=== PATIENT | female | born 1975 | race Caucasian/White ===

== ENCOUNTER 2020-12-23 08:25 | Outpatient (CLI) | payer OTHER, SELFPAY ==
--- NOTE | ~2020-12-23 | CT_ITS ---
EXAMINATION: CT LE RT wo con DATE: 12/23/2020 09:02 INDICATION: Unilateral primary osteoarthritis of the right knee TECHNIQUE: High resolution computed tomography (CT) of the right lower limb from above the hip throug h the foot was performed without intravenous contrast. Additional sagittal and coronal reconstruction s were performed. Automated exposure control and iterative reconstruction technique were employed. Th e dose-length product was 1728.56 mGy-cm. COMPARISON: None FINDINGS: Varus angulation at the right knee with resulting from severe medial compartment predominant osteoart hritis with remodeling of the medial tibial plateau where there is subarticular cystic change. No rig ht knee joint effusion. No fracture. There is additional mild osteoarthritis at the right hip and sac roiliac joints. Small elongated sclerotic likely bone island in the right innominate bone near the sa croiliac joint which aligns along the trabecular axis. Small fat-containing right inguinal hernia. Vi sualized portions of the bladder, uterus and bowels are unremarkable. No pathologically enlarged righ t pelvic or inguinal lymphadenopathy. Musculature at the right hemipelvis and right leg appear unrema rkable. Mild osteoarthritis at the right ankle, subtalar and several tarsal metatarsal joints. Small Achilles and plantar calcaneal enthesophytes. Small amount of heterotopic ossicles along the fibular side of the anterior distal tibiofibular ligament as well as at the cervical ligament at the medial a spect of the sinus Tarsi both of which could represent sequela of old trauma. IMPRESSION: 1. Varus angulation and severe medial compartment predominant tricompartmental osteoarthritis at the right knee. Reviewed, dictated and finalized at location A.
== END 2020-12-23 08:26 | disposition home or self-care (01) ==
PROVIDERS: PCP Nurse Practitioner Family; Visit Provider Orthopaedic Surgery
DX: M17.11 Unilateral primary osteoarthritis, right knee (principal)
CPT/HCPCS: 73700

== ENCOUNTER 2021-01-15 07:36 | Outpatient (CLI) | payer OTHER, SELFPAY ==
--- NOTE | 2021-01-15 | ECG_ITS ---
Measurements Intervals [place] Rate: 81 P: 59 MD: 138 QRS: 12 QRSD: 89 T: 17 QT: 374 QTc: 437 Interpretive Statements SINUS RHYTHM POSSIBLE LEFT ATRIAL ENLARGEMENT DELAYED PRECORDIAL R/S TRANSITION MINIMAL Q WAVES- INFERIOR LEADS BASELINE ARTIFACT- I, II, AVR BORDERLINE ECG Electronically Signed On 01-15-2021 11:59:12 PERFORMANCE SPECIALIST by Terrence Meyer D.O.
[2021-01-15 08:06] LABS: Hematocrit 44.2 % (37.0-47.0); Hemoglobin 15.3 g/dL (12.0-15.0)
[2021-01-15 08:23] LABS: Albumin Level 4.7 g/dL (3.5-5.1); Estimated Glomerular Filt Rate > 60; Glucose 132 mg/dL (65-110)
[2021-01-15 08:37] LABS: Hemoglobin A1C 5.9 % (<5.7)
[2021-01-15 08:57] LABS: Urine Cotinine NEGATIVE
== END 2021-01-15 07:37 | disposition home or self-care (01) ==
PROVIDERS: Visit Provider Orthopaedic Surgery
DX: M17.12 Unilateral primary osteoarthritis, left knee (principal); E66.9 Obesity, unspecified; I10 Essential (primary) hypertension; Z01.818 Encounter for other preprocedural examination; R94.31 Abnormal electrocardiogram [ECG] [EKG]
CPT/HCPCS: 80307; 82040; 82565; 82947; 83036; 85014; 85018; 93005

== ENCOUNTER 2021-01-24 13:21 | Outpatient (CLI) | payer OTHER, SELFPAY ==
--- NOTE | ~2021-01-24 | CT_ITS ---
EXAMINATION: CT LE LT wo con DATE: 01/24/2021 13:54 INDICATION: Primary osteoarthritis of the left knee. TECHNIQUE: High resolution computed tomography (CT) of the left knee was performed without intravenou s contrast. Additional sagittal and coronal reconstructions were performed. Automated exposure contro l and iterative reconstruction technique were employed. The dose-length product was 582.05 mGy-cm. COMPARISON: None FINDINGS: Varus angulation at the left knee which results from severe medial compartment predominant osteoarthr itis with small amount of vacuum phenomena demonstrating cartilage is denuded articular surfaces with subarticular sclerosis and mild cystic changes at the medial tibial plateau and juxtaposed anterior weightbearing medial femoral condyle. There is also some remodeling of the medial side of the medial tibial plateau with moderate to large marginal osteophytes of the medial compartment. Moderate sized marginal osteophytes at the lateral and patellofemoral compartments. There is mild nonuniform joint s pace narrowing in the patellofemoral compartment. There is small region of mild subarticular cystic c hange along the medial margin of the anterior weightbearing lateral femoral condyle where it articula yadira with the lateral intercondylar spine with its also mild cystic change. No right knee joint effusi on. No fracture. Soft tissues including the musculature in the distal thigh and proximal calf are nor mal. IMPRESSION: 1. Varus angulation and severe medial compartment predominant tricompartmental osteoarthritis at left knee. Reviewed, dictated and finalized at location A. ALS INTELLIGENCE ANALYSIS MANAGER
== END 2021-01-24 13:22 | disposition home or self-care (01) ==
LOC: ANHIMG 13:32
PROVIDERS: Visit Provider Orthopaedic Surgery
DX: M17.0 Bilateral primary osteoarthritis of knee (principal)
CPT/HCPCS: 99199; 73700

== ENCOUNTER 2021-01-28 16:39 | Outpatient (CLI) | payer OTHER, SELFPAY ==
--- NOTE | ~2021-01-28 | CT_ITS ---
EXAMINATION: CT LE LT wo con DATE: 01/28/2021 17:56 INDICATION: Bilateral primary osteoarthritis of the left knee. TECHNIQUE: High resolution computed tomography (CT) of the left lower limb from the hip through the l eft midfoot was performed without intravenous contrast. Additional sagittal and coronal reconstructio ns were performed. Automated exposure control and iterative reconstruction technique were employed. T he dose-length product was 1735.04 mGy-cm. COMPARISON: 01/24/2021 FINDINGS: No fractures. Varus angulation at the left knee which results from severe medial compartment predomin ant osteoarthritis with small amount of vacuum phenomena demonstrating cartilage is denuded along the articular surfaces with subarticular sclerosis and mild cystic changes at the medial tibial plateau and juxtaposed anterior weightbearing medial femoral condyle. There is also some remodeling of the me dial side of the medial tibial plateau with moderate to large marginal osteophytes of the medial comp artment. Moderate sized marginal osteophytes at the lateral and patellofemoral compartments. Several central subchondral osteophytes along both the medial and lateral trochlea. There is mild nonuniform joint space narrowing in the patellofemoral compartment. There is small region of mild subarticular c ystic change along the medial margin of the anterior weightbearing lateral femoral condyle where it a rticulates with the lateral intercondylar spine were there is also mild cystic change. No right knee joint effusion. Additional mild polyarticular osteoarthritis at the left hip, ankle and subtalar join ts. Small Achilles calcaneal spur. Visualized soft tissues are unremarkable. No pathologically enlarg ed left hip or inguinal lymphadenopathy. IMPRESSION: 1. Varus angulation and severe medial compartment predominant tricompartmental osteoarthritis at left knee. Reviewed, dictated and finalized at location B. MBLY LINE ROBOT OPERATOR
== END 2021-01-28 16:40 | disposition home or self-care (01) ==
LOC: ANHIMG 16:42
PROVIDERS: Visit Provider Orthopaedic Surgery
DX: M17.0 Bilateral primary osteoarthritis of knee (principal)
CPT/HCPCS: 73700

== ENCOUNTER 2021-02-26 09:17 | Outpatient (CLI) | payer OTHER, SELFPAY ==
[2021-02-26 11:05] LABS: Basophils Absolute Auto 0.1 K/mm3 (0.0-0.1); Basophils Percent Auto 0.8 % (0.2-1.2); Eosinophils Absolute Auto 0.3 K/mm3 (0-0.3); Hematocrit 42.2 % (37.0-47.0); Hemoglobin 14.3 g/dL (12.0-15.0); Immature Granulocyte Absolute 0.03 K/mm3 (0.00-0.031); Immature Granulocyte Percent A 0.3 % (0-0.5); Lymphocytes Absolute Auto 2.26 K/mm3 (0.9-3.2); Lymphocytes Percent Auto 24.9 % (18.3-44.2); Mean Corpuscular HGB Conc 33.9 g/dl (32-36); Mean Corpuscular Hemoglobin 30.6 pg (26-34); Mean Corpuscular Volume 90.2 fl (80-100); Mean Platelet Volume 9.5 fl (7.4-10.4); Monocytes Absolute Auto 0.5 K/mm3 (0.1-0.6); Monocytes Percent Auto 5.1 % (2.6-8.5); Neutrophils Percent Auto 65.9 % (45.5-73.1); Platelet Count Result 378 k/mm3 (150-375); Red Blood Count 4.68 M/mm3 (4.2-5.4); White Blood Count 9.1 K/mm3 (4.5-10.0)
[2021-02-26 11:17] LABS: Urine Cotinine NEGATIVE
[2021-02-26 11:26] LABS: Anion Gap 10 mmol/L (8-16); Blood Urea Nitrogen 8 mg/dL (7-17); Calcium 9.6 mg/dL (8.4-10.2); Carbon Dioxide 28 mmol/L (22-30); Chloride 98 mmol/L (98-107); Estimated Glomerular Filt Rate > 60; Glucose 110 mg/dL (65-110); Potassium 4.2 mmol/L (3.4-5.0); Sodium 136 mmol/L (137-145)
[2021-02-26 12:12] LABS: Albumin Level 4.6 g/dL (3.5-5.1)
== END 2021-02-26 09:18 | disposition home or self-care (01) ==
LOC: ANHSURGERY 09:20
PROVIDERS: Anesthesiology; Visit Provider Orthopaedic Surgery
DX: M17.12 Unilateral primary osteoarthritis, left knee (principal); Z51.81 Encounter for therapeutic drug level monitoring; Z01.818 Encounter for other preprocedural examination
CPT/HCPCS: 36415; 80048; 80307; 82040; 85025; 87081

== ENCOUNTER 2021-04-21 00:03 | Day surgery (SDC) | payer OTHER, SELFPAY ==
[2021-02-26 09:42] VITALS: BP 141/78; PULSE 79; RESP 16; TEMP 36.9; O2SAT 98; BMI 38.5
--- NOTE | 2021-02-26 09:59 | PC.NURSE ---
Addendum entered by Alma Merchant RN 04/14/21 13:44: PT TO ARRIVE AT 1000 ON 04/21/21 FOR SURGERY AT 1200. Original Note: Report to the Outpatient Waiting Room, entrance under the green pavilion located off [facility], at time ___6:00AM____ on date _03/20/21 . OR Time: __7:30AM or will be asked a series of questions to screen for COVID 19 for your protection. - A mask is required within the hospital. - Only one visitor is allowed at this time. Patient visitors will be guided where to wait when not with patient. Preoperative COVID Testing Requirements: No COVID Test needed if: (proof is required; if not received patient will have Rapid Test prior to entry) - Patient has received COVID Vaccine at least 14 days prior to procedure date or - Patient has positive COVID test result within last 90 days of surgery date. COVID Test needed if above criteria is not met If not COVID vaccinated a COVID test must be conducted within 72 hours of surgery and patient is asked to isolate self from time of testing until procedure. You will go to the [facility] for your COVID testing. The [facility] site is located at the corner of [address] [facility]. You will only be called if COVID results are positive and your surgeon may reschedule your elective surgery date. Patients may have clear liquids (water, carbonated beverages, clear teas, apple juice) until 3 hours prior to surgery with a maximum of 20 ounces. - No food from midnight until time of surgery - Infants may have breast milk until 4 hours before surgery, infant formula 6 hours prior to surgery. - Children will be allowed to drink immediately following surgery. If applicable, please bring a bottle or sippy cup to assist with drinking. Juice, water, soda, and popsicles are readily available. For infants on formula, please bring formula the day of surgery. Pacifiers are allowed. Take the following medications with a SIP of water the morning of surgery: ____NONE Medications to discontinue per physician ALL VITAMINS/SUPPLEMENTS 3 DAYS PRE-OP Date to take last dose 03/16/21 Please no make-up, nail serbian, hairspray, perfume, deodorant, or body powder the day of surgery. No jewelry (including any body piercings) or valuables the day of surgery, leave them at home. Please take a shower or bath the night before, or the morning of, surgery with an antibacterial soap. Wear comfortable, loose fitting clothing. Children are encouraged to wear pajamas. - Jewelry must be removed prior to entering the operating room. Rings and piercings that are not removed may be cut off. - The hospital will not accept responsibility for valuables. - Please leave all valuables, including medications, at home the day of surgery. If you are going home after surgery, a licensed courier delivery driver must drive you home. - NO public transportation without another adult. - We recommend that an adult stay with you for 24 hours following discharge. - We also recommend that you do not drive, make important decision, drink alcoholic beverages, or take any drugs that were not prescribed by your health care provider for at least 24 hours after your discharge time. For Pediatric surgeries, we recommend two adults accompany the child home (only one inside the building at this time). Follow any additional instructions given to you from your surgeon. Telephone instructions given to ___PATIENT and asked if any additional questions and then verbalized understanding. Patient advised to call surgeon office or pre surgery nurse liaison [phone] if any additional questions.
[2021-04-14 13:37] VITALS: BMI 38.5
[2021-04-21] VITALS (14 sets, daily range): BP systolic 119–144; BP diastolic 65–88; PULSE 72–95; RESP 14–18; TEMP 36.1–36.7; O2SAT 88–100
--- NOTE | ~2021-04-21 | XR_ITS ---
EXAMINATION: XR knee LT 2V DATE: 04/21/2021 16:42 INDICATION: Total left knee arthroplasty. Postop. TECHNIQUE: 2 views of left knee were obtained. COMPARISON: Left knee radiographs 06/28/2017 FINDINGS: There is a total left knee arthroplasty with patellar resurfacing in near-anatomic alignmen t. No fracture. There is gas in the knee joint and soft tissues, consistent with recent surgery. IMPRESSION: 1. Total left knee arthroplasty in near-anatomic alignment. Reviewed, dictated and finalized at location A. SUBMERGENCE VEHICLE CREWMEMBER
[2021-04-21] MEDS: ACETAMINOPHEN 500 MG TABLET 1000 MG PO (10:32)
[2021-04-21] MEDS: LACTATED RINGERS 1,000 ML 30 ML IV CONT ×2 (11:00→16:25)
[2021-04-21] MEDS: TRANEXAMIC ACID 1,000MG/ISO100 1,000 MG/100 ML BAG 200 MG IVPB (11:00)
--- NOTE | 2021-04-21 11:49 | WPDANESEPPF ---
Anes - Initial Pre Proc Eval Procedure: Operation Date: 04/21/21 12:00 Proposed Procedures p Left Custom Total Knee Arthroplasty - Kevin Galloway MD Date/Time: 04/21/21 11:49 Surgeon: Kevin Galloway MD Pre Op Diagnosis: primary OA left knee Patient Data Age: 45 Gender: F Height: 1.65 m Weight: 104 kg Last Vital Signs Temp 36.2 C L 04/21/21 11:34 Pulse 85 04/21/21 11:34 Resp 16 04/21/21 11:34 BP 144/84 H 04/21/21 11:34 Pulse Ox 99 04/21/21 11:34 Allergies Allergy/AdvReac Type Severity Reaction Status Date / Time adhesive Allergy Unknown Blister Verified 04/21/21 11:27 Home Medications Medication Instructions Recorded Confirmed Type multivitamin 1 tablet PO DAILY 01/10/21 04/21/21 History mv,iron,mnv-AR-ltzibrb supplement 1 tablet PO DAILY 01/10/21 04/21/21 History comb. no.24 400 mcg tablet progesterone micronized 100 mg 100 mg PO HS 01/10/21 04/21/21 History capsule semaglutide (weight loss) 2.4 2.4 mg SUBCUT WEEKLY 01/10/21 04/21/21 History mg/0.75 mL subcutaneous pen injector phentermine 18.75 mg PO QAM 02/26/21 04/21/21 History sertraline 100 mg PO HS 02/26/21 04/21/21 History spironolactone 100 mg PO BID 02/26/21 04/21/21 History Patient hx anesthesia problems: post op nausea/vomiting Family hx anesthesia problems: none Results Review: All pre-operative results and documents have been reviewed as part of the pre-operative evaluation. COUNTS INCLUDE 234 BEDS AT THE [facility] Past Medical History Medical History Anxiety Arthritis Hypertension PAOLO (obstructive sleep apnea) Surgical History Surgical History History of section Family History Family History Father Family history of malignant melanoma, Onset Age: 53 Other Diabetes mellitus Family history of dementia Family history of lung cancer Social History Social History Smoking status: Never smoker Alcohol intake: current Drinks per week: 2 Substance use: never Substance use type: does not use Living arrangements: with family Additional living arrangements comments: [facility] Spiritual care concerns: No Anes - Eval Final PreProcedure Day of Procedure 04/21/21 11:49 Patient weight: obese Heart: regular rate and rhythm Lungs: clear to auscultation Airway: Mallampati scale class 1 Neurological: alert and oriented Last oral intake: >/= 8 hours ASA classification: III Emergent: no Anesthetic plan: proceed Anesthesia type and monitoring: general LMA and standard monitoring Results Review: All pre-operative results and documents have been reviewed as part of the pre-operative evaluation. Informed Consent: The patient's anesthetic plan and its attendant risks and benefits were discussed with the patient/family/POA. Questions were solicited and answers provided to the satisfaction of the patient/family/POA.
--- NOTE | 2021-04-21 12:19 | PM.IMHP ---
H&P: HPI History of Present Illness Date/Time: 04/21/21 12:19 Chief Complaint: Patient complains of chronic and severe diffuse knee pain. Left worse than right. Worse with prolonged standing and walking. Complains also of pain in the ankle with notable deformity. Injection: yes with diminishing benefit Physical therapy: Yes with little benefit. Reviewed notes from 06/27/20 and 08/09/20. Slight improvement in ROM. Still has significant contracture. NSAIDs: yes Review of Systems: Joint pain Examination No changes. Appears healthy. No distress, morbidly obese. The knee shows Severe varus deformity. Diffuse tenderness. Painful limited active range of motion. No instability. Good strength. Yes crepitus, No erythema or warmth, Mild synovitis Gait Antalgic. Range of motion: left Extension 0, Flexion 90, and 3- 95 on the right Effusion mild bilateral. Neurovascular status intact, radial pulse palpable and symmetric, light touch sensation intact. No edema, no skin rash or lesions Diagnostics Previous bilateral knee films show severe tricompartmental arthritis with significant varus deformity and medial tibial erosion. FOR[facility]LY [facility] Past Medical History Medical History Anxiety Arthritis Hypertension PAOLO (obstructive sleep apnea) Surgical History Surgical History History of section Family History Family History Father Family history of malignant melanoma, Onset Age: 53 Other Diabetes mellitus Family history of dementia Family history of lung cancer Social History Social History Smoking status: Never smoker Alcohol intake: current Drinks per week: 2 Substance use: never Substance use type: does not use Living arrangements: with family Additional living arrangements comments: [facility] Spiritual care concerns: No Meds Home Medications and Allergies Home Medications Medication Instructions Recorded Confirmed Type multivitamin 1 tablet PO DAILY 01/10/21 04/21/21 History mv,iron,qzw-HW-tlbbbar supplement 1 tablet PO DAILY 01/10/21 04/21/21 History comb. no.24 400 mcg tablet progesterone micronized 100 mg 100 mg PO HS 01/10/21 04/21/21 History capsule semaglutide (weight loss) 2.4 2.4 mg SUBCUT WEEKLY 01/10/21 04/21/21 History mg/0.75 mL subcutaneous pen injector phentermine 18.75 mg PO QAM 02/26/21 04/21/21 History sertraline 100 mg PO HS 02/26/21 04/21/21 History spironolactone 100 mg PO BID 02/26/21 04/21/21 History Allergies Allergy/AdvReac Type Severity Reaction Status Date / Time adhesive Allergy Unknown Blister Verified 04/21/21 11:27 Vital Signs Vital Signs - 24 hr 04/21/21 11:34 Temperature 36.2 C L Pulse Rate 85 Respiratory Rate 16 Blood Pressure 144/84 H Pulse Oximetry 99 Assessment and Plan Assessment and plan (1) Primary localized osteoarthritis of knees, bilateral: Code(s): M17.0 - Bilateral primary osteoarthritis of knee Status: Acute Assessment and Plan: Severe advanced bilateral knee arthritis. Left worse than right. She is having difficulty with daily activities and walking. Also ankle pain due to the varus deformity. Her contracture has improved with therapy but remains quite significant particularly on the left. We discussed the risks, benefits, and alternatives to surgery. Proceed with total knee arthroplasty, left knee. Philipp. PS. Pain medication: Percocet, Meloxicam, Prednisone DVT Prophylaxis: ASA 81 mg BID, short frequent walks, compression socks. History of N/V after anesthesia.
--- NOTE | 2021-04-21 12:22 | WPDHPUPDATE1 ---
History and Physical Update Update Date/Time: 04/21/21 12:22 History and Physical has been reviewed, including an updated exam of the patient. There are NO changes in the patient's condition. Risks, benefits, and alternatives have been discussed and questions answered. Patient agrees to proceed with procedure.
--- NOTE | 2021-04-21 12:26 | WPDANESPNB ---
Anes - Peripheral Nerve Block Date/Time: 04/21/21 12:26 I have discussed with the patient/family/POA the placement of a peripheral nerve block for post-operative pain management, including associated risks, benefits, complications, and side effects. Alternative methods of post-operative analgesia were detailed. Questions were solicited and answers provided to the satisfaction of the patient/family/POA. Time-Out: A pre-procedural Time-Out was completed immediately before starting the procedure and confirmed: Patient Identification, Site, Procedure, Patient Position and the Availability of Requisite Equipment. Clinical Indications: Acute post-operative pain management requested by the operative surgeon. Nerve Block Insertion Note Anes-nerve block: adductor canal left Patient position: supine Skin prep: chlorhexidine Needle: 22 gauge, stimulating, insulated echogenic needle. Needle length: 80 mm Technique: ultrasound Technique comment: mid2mg [id number] Injectate: bupivacaine 0.5% with epi 5 mcg/ml (30ml) and dexamethasone (mg) (4) Observations: tolerated well Complications: none Procedure start time:: 1213 Procedure end time:: 1220
[2021-04-21] MEDS: ceFAZolin 2 GM/D5W 50 ML 2 GM/50 ML BAG IVPB (12:49)
[2021-04-21] MEDS: GENTAMICIN BONE CEMENT REFOBACIN 1 EACH TOPICAL (13:43)
[2021-04-21] MEDS: ceFAZolin SODIUM 1 GM VIAL IV PUSH (16:18)
[2021-04-21] MEDS: SCOPOLAMINE 1.5 MG PATCH TRANSDERM (16:25)
--- NOTE | 2021-04-21 16:52 | SUR.PHASEI ---
1635 2 VIEWS OF XRAY TAKEN OF LT KNEE IN PACU
--- NOTE | 2021-04-21 17:06 | W.PM.PROC2 ---
Procedure Note - Detailed Date of Procedure 04/21/21 Pre-op Diagnosis primary OA left knee Post-op Diagnosis same Procedure Performed Total knee arthroplasty, left. Surgeon Kevin Galloway MD Road Design Engineer Abigail Sorenson PA-C Anesthesia general and regional (Subsartorial block.) Indications Advanced degenerative changes with severe stiffness due to osteophytes with constitutional varus and progressive varus deformity due to tibial erosion. Findings Marked stiffness from 10? to 60?. Femoral 4 in 1 cut guide not be placed without cutting the tibia after the distal femoral resection. The custom implants fit very well. Meticulous osteophyte removal was required. Due to posterior medial tibial erosion, minimal tibial resection was performed particularly on the posteromedial aspect. A large medial release was required. Bone quality was excellent. Description of Procedure Physician material assistant, Abigail Ortega PA-C, required for surgery; including patient positioning, draping, tissue retraction, maintaining instrument position, cement removal, wound closure, and dressing placement. Preoperative antibiotics were given. The limb was prepped and draped in the usual sterile fashion with a well-padded tourniquet high on the thigh. The limb was exsanguinated and the tourniquet inflated to 300 mmHg for 60 minutes, then released until cementation. A longitudinal incision was created just medial to the patella. A trivector approach to the knee was performed. Arthrotomy was taken down through the joint capsule. No significant releases were initially taken. The femur was exposed and the F1 jig was applied. The coring tool was used to remove the cartilage for the F2 jig to sit flush with the bone. The jig was pinned and the distal cut carefully taken. Caliper measurements confirmed appropriate bony resections according to the preoperative templated plan. The tibia was prepared using the T1 jig, after removing cartilage for the jig contact points. Proper alignment was checked with the alignment ligia. The tibia was cut using the T1u guide. The F4 cutting jig for the femur was applied, at the standard rotation. The AP and anterior chamfer cuts were taken. The F5 jig was applied and the posterior chamfer cuts were taken. Gap balancing was performed. Gap measurements were taken and the knee was trialed. Excellent alignment and soft tissue balancing was confirmed. The patella was cut for resurfacing. Three lug holes were drilled. Meniscal remnants were removed. The trial components were assembled. Excellent range of motion and proper soft tissue balancing were confirmed throughout the full range of motion. Patellar tracking was excellent. The knee was copiously irrigated periodically throughout the procedure. The real implants were cemented into position. Excess cement was carefully removed. The wound was closed in layers with interrupted #1 Vicryl suture, 2-0 strata fix suture, 0 strata fix suture, 2-0 strata fix suture. Steri-Strips placed on the skin with the knee flexed. Sterile bulky dressing applied. The patient was brought to the recovery room in stable condition. There were no complications. Implants Conformis Custom total knee arthroplasty. Cemented. Posterior stabilized 8mm insert. 32 mm round patella. Estimated Blood Loss 150 Drains No Complications No immediate complications Condition stable Disposition PACU
[2021-04-21] MEDS: fentaNYL CITRATE INJ (*CRX) 100 MCG/2 ML VIAL 25 MCG IV PUSH (17:09)
[2021-04-21] MEDS: ONDANSETRON INJ 4 MG/2 ML VIAL IV PUSH (17:17)
--- NOTE | 2021-04-21 17:44 | ADMGEN ---
This patient, Caitlyn Rico, was admitted to 2 Medical Room 260-. Patient/family oriented to hospital policies and general routines including ID bracelet, bed and alarms, visiting hours, pain management, procedures, bathroom and other care routines, personal items, smoking policy, room service/diet, and visiting hours. Information on how to activate the Rapid Response Team has been discussed. Patient/Family are encouraged to report perceived risks to care and to ask questions if they do not understand what they are told or what they should do.
[2021-04-21] MEDS: SODIUM CHLORIDE 0.9% IV 1,000 ML 125 ML IV CONT (18:34)
[2021-04-21] MEDS: oxyCODONE HCL (*CRX) 5 MG TAB IR PO (20:08)
[2021-04-21] MEDS: SENNA/DOCUSATE SODIUM TABLET 2 TAB PO (22:00)
[2021-04-21] MEDS: SPIRONOLACTONE 50 MG TABLET 100 MG PO (22:00)
[2021-04-21] MEDS: SERTRALINE HCL 50 MG TABLET 100 MG PO (22:00)
[2021-04-22 01:50] VITALS: PULSE 78; RESP 16; O2SAT 96
[2021-04-22] MEDS: ONDANSETRON INJ 4 MG/2 ML VIAL IV PUSH (02:10)
[2021-04-22] MEDS: ceFAZolin 2 GM/D5W 50 ML 2 GM/50 ML BAG IVPB ×3 (02:24→13:12)
[2021-04-22 03:12] VITALS: BP 125/68; PULSE 71; RESP 17; TEMP 36.2; O2SAT 98
[2021-04-22 06:00] VITALS: PULSE 71; RESP 17; O2SAT 98
[2021-04-22] MEDS: THERAPEUTIC MULTIVITAMINS/MINERALS TAB (*BKC) 1 TABLET PO (08:27)
[2021-04-22] MEDS: oxyCODONE HCL (*CRX) 5 MG TAB IR PO (08:29)
--- NOTE | 2021-04-22 09:23 | WPDANESPN ---
Anes - Prog Note Post-Op Date/Time: 04/22/21 09:23 Cardiovascular status: normal Respiratory status: normal Airway patency: baseline Mental status: baseline Post-Op hydration status: normal Vital Signs: Last Vital Signs Temp 97.2 F L 04/22/21 03:12 Pulse 71 04/22/21 06:00 Resp 17 04/22/21 06:00 BP 125/68 04/22/21 03:12 Pulse Ox 98 04/22/21 06:00 Pain Score (VAS): 03/03 I/O: Intake & Output 04/21/21 04/22/21 04/22/21 23:59 07:59 15:59 Intake Total 300 1300 360 Balance 300 1300 360 04/21/21 10:42 Blood Type A Positive Antibody Screen Negative Post-procedural complaints: none Patient Feedback: Patient satisfied with anesthetic care.
[2021-04-22] MEDS: oxyCODONE HCL (*CRX) 5 MG TAB IR 10 MG PO ×2 (09:58→14:14)
[2021-04-22 10:05] VITALS: BP 134/75; PULSE 70; RESP 16; TEMP 36.6; O2SAT 99
--- NOTE | 2021-04-22 10:55 | P.DS_ITS ---
DS: Admitting Diagnosis Discharge Date 04/22/21 Admitting Diagnosis OA knee Left DS: Discharge Diagnosis Discharge Diagnosis (1) Orthopedic aftercare for joint replacement: Code(s): Z47.1 - Aftercare following joint replacement surgery Status: Acute (2) Status post total left knee replacement: Code(s): Z96.652 - Presence of left artificial knee joint Status: Acute Assessment and Plan: Postop day 1: Left total knee arthroplasty. Patient tolerated procedure well. No complications. Pain manageable with pain medication. No numbness or tingling. We had a lengthy discussion regarding postoperative wound care, limitations, expectations, and exercises. Patient shows good understanding. He has had initial physical therapy and is tolerating it well. DVT prophylaxis: 81 mg baby aspirin b.i.d. for 14 days. Short frequent walks. Compression socks. Pain medication: Percocet. Prednisone. Meloxicam. Patient has followup appointment with Dr. Galloway in 3 weeks. DS: Summary Hospital Course Reason for hospitalization: Total knee arthroplasty Hospital Course: Patient tolerated procedure well. Has had initial PT/OT. Status at Discharge Functional status at discharge: uses cane/walker Overall status at discharge: patient is progressing back to baseline Time Spent with Patient Time attestation: Total time spent providing and/or coordinating discharge services: Exam Narrative: Overweight 45-year-old female. Resting comfortably in bed. Alert and oriented x3. No acute distress. Wearing compression socks bilaterally. Dressing intact without drainage. Moderate swelling. No ecchymosis. No erythema. No hematoma. Range of motion limited due to pain. Calf nontender. Neurologic status intact. No varicosities. Distal pulses palpable. DS: Data Data Completed and Pending Labs on day of discharge: Labs from last 24 hours 04/21/21 10:42 Blood Type A Positive Antibody Screen Negative Discharge Plan Discharge Patient Disposition: Home, Self-Care Discharge Instructions: Remove the Scopolamine patch that was placed behind your ear in 72 hours or less. Wash your hands after touching. See green discharge instruction sheet. Patient Instructions: Pain Management (DC), Joint Replacement Surgery (DC), Knee Replacement (DC) Stand Alone Forms: General Discharge Instructions Follow-up/Referrals: Abigail Sorenson PA [Physician Poultry Husbandry Worker] - Discharge Medications: New meloxicam 15 mg tablet 15 mg PO DAILY Qty: 30 RF: 0 prednisone 5 mg tablet 5 mg PO DAILY 21 Days Qty: 21 RF: 0 aspirin 81 mg tablet,delayed release (DR/EC) 81 mg PO BID 14 Days Qty: 28 RF: 0 oxycodone-acetaminophen 5-325 mg tablet 1 - 2 tablet PO Q4-6H MDD 6 PRN (Reason: pain) Qty: 30 RF: 0 Continued Wegovy 2.4 mg/0.75 mL pen injector 2.4 mg subcut WEEKLY RF: 0 progesterone micronized 100 mg capsule 100 mg PO HS RF: 0 multivitamin Tablet 1 tablet PO DAILY RF: 0 mv,iron,ysb-AL-urhmpvj cmb.24 400 mcg tablet 1 tablet PO DAILY RF: 0 spironolactone 100 mg tablet 100 mg PO BID RF: 0 phentermine 37.5 mg Capsule 18.75 mg PO QAM RF: 0 sertraline 100 mg tablet 100 mg PO HS RF: 0
[2021-04-22] MEDS: ASPIRIN 81 MG ENTERIC TABLET PO (12:04)
[2021-04-22] MEDS: polyethylene glycoL 3350 17 GM POWD.PACK PO (12:04)
[2021-04-22] MEDS: MELOXICAM 7.5 MG TABLET PO (12:04)
[2021-04-22] MEDS: FAMOTIDINE 20 MG TABLET PO (12:04)
[2021-04-22] MEDS: SENNA/DOCUSATE SODIUM TABLET 2 TAB PO (12:04)
[2021-04-22 14:22] VITALS: BP 122/66; PULSE 79; RESP 16; TEMP 36.4; O2SAT 96
== END 2021-04-22 14:40 | disposition home or self-care (01) ==
LOC: ANHSURGERY 17:20 → ANH2MED 17:40
PROVIDERS: Visit Provider Orthopaedic Surgery
PROC: (CPT 27447; principal; 2021-04-21 12:00)
DX: M17.2 Bilateral post-traumatic osteoarthritis of knee (principal); M25.762 Osteophyte, left knee; G89.18 Other acute postprocedural pain; M25.562 Pain in left knee; F41.9 Anxiety disorder, unspecified; M19.90 Unspecified osteoarthritis, unspecified site; I10 Essential (primary) hypertension; G47.33 Obstructive sleep apnea (adult) (pediatric); E66.9 Obesity, unspecified; Z68.38 Body mass index [BMI] 38.0-38.9, adult
CPT/HCPCS: 27447; 64447; 36415; 73560; 86850; 86900; 86901; 97110; 97161; 97165; 97530; 97535; A9270; C1713; C1776; J0131; J0171; J0690; J1100; J1170; J1885; J2250; J2270; J2405; J2704; J2795; J3010; J7030; J7120

== ENCOUNTER 2021-07-28 14:52 | Outpatient (CLI) | payer OTHER, SELFPAY ==
[2021-07-28 15:36] LABS: Hematocrit 40.9 % (37.0-47.0); Hemoglobin 13.4 g/dL (12.0-15.0)
[2021-07-28 16:11] LABS: Hemoglobin A1C 5.7 % (<5.7)
[2021-07-28 17:29] LABS: Albumin Level 4.9 g/dL (3.5-5.1); Glucose 85 mg/dL (65-110)
[2021-07-29 10:48] LABS: Estimated Glomerular Filt Rate > 60
== END 2021-07-28 14:53 | disposition home or self-care (01) ==
LOC: ANHLAB 14:55
PROVIDERS: Visit Provider Orthopaedic Surgery
DX: M17.11 Unilateral primary osteoarthritis, right knee (principal); I10 Essential (primary) hypertension
CPT/HCPCS: 36415; 82040; 82565; 82947; 83036; 85014; 85018

== ENCOUNTER 2021-09-17 11:28 | Outpatient (CLI) | payer OTHER, SELFPAY ==
[2021-09-17 12:45] LABS: Basophils Absolute Auto 0.1 K/mm3 (0.0-0.1); Basophils Percent Auto 0.6 % (0.2-1.2); Eosinophils Absolute Auto 0.3 K/mm3 (0-0.3); Eosinophils Percent Auto 2.6 % (0-4.4); Hematocrit 41.6 % (37.0-47.0); Hemoglobin 13.9 g/dL (12.0-15.0); Immature Granulocyte Absolute 0.04 K/mm3 (0.00-0.031); Immature Granulocyte Percent A 0.4 % (0-0.5); Lymphocytes Absolute Auto 2.95 K/mm3 (0.9-3.2); Mean Corpuscular HGB Conc 33.4 g/dl (32-36); Mean Corpuscular Hemoglobin 29.7 pg (26-34); Mean Corpuscular Volume 88.9 fl (80-100); Mean Platelet Volume 9.5 fl (7.4-10.4); Monocytes Absolute Auto 0.5 K/mm3 (0.1-0.6); Monocytes Percent Auto 5.3 % (2.6-8.5); Neutrophils Absolute Auto 6.3 K/mm3 (1.3-6.7); Neutrophils Percent Auto 62.1 % (45.5-73.1); Platelet Count Result 356 k/mm3 (150-375); Red Blood Count 4.68 M/mm3 (4.2-5.4); Red Cell Distribution Width 13.1 % (11.5-14.5); White Blood Count 10.2 K/mm3 (4.5-10.0)
[2021-09-17 12:51] LABS: Albumin Level 4.8 g/dL (3.5-5.1)
[2021-09-17 12:54] LABS: Anion Gap 11 mmol/L (8-16); Blood Urea Nitrogen 11 mg/dL (7-17); Calcium 9.1 mg/dL (8.4-10.2); Carbon Dioxide 28 mmol/L (22-30); Chloride 97 mmol/L (98-107); Estimated Glomerular Filt Rate > 60; Glucose 108 mg/dL (65-110); Potassium 4.2 mmol/L (3.4-5.0); Sodium 136 mmol/L (137-145)
[2021-09-17 13:01] LABS: Urine Cotinine NEGATIVE
== END 2021-09-17 11:29 | disposition home or self-care (01) ==
PROVIDERS: Anesthesiology; Visit Provider Orthopaedic Surgery
DX: M17.11 Unilateral primary osteoarthritis, right knee (principal); Z79.899 Other long term (current) drug therapy; Z01.818 Encounter for other preprocedural examination
CPT/HCPCS: 36415; 80048; 80307; 82040; 85025; 87081

== ENCOUNTER 2021-10-16 00:41 | Day surgery (SDC) | payer OTHER, SELFPAY ==
[2021-09-17 11:47] VITALS: BP 136/84; PULSE 78; RESP 18; TEMP 37.3; O2SAT 95; BMI 39.0
--- NOTE | 2021-09-17 11:47 | PC.NURSE ---
Report to the Outpatient Waiting Room, entrance under the green pavilion located off [facility], at time _0600_ on date _10/16/21_. OR Time: _0730_. - You and your visitor will be asked a series of questions to screen for COVID 19 for your protection. -Mask required while in the hospital. - Only one visitor is allowed at this time. - The patient visitor is requested to leave or wait in car when not with patient. - PACK A SMALL OVERNIGHT BAG AND LEAVE IN THE CAR ALONG WITH YOUR WALKER. VISITING HOURS 10AM-8PM, PARK IN MAIN PARKING LOT AND USE MAIN HOSPITAL ENTRANCE. Patients may have clear liquids (water, carbonated beverages, clear teas, apple juice) until 3 hours prior to surgery (0430 AM) with a maximum of 20 ounces. - No food from midnight until time of surgery Take the following medications with a SIP of water the morning of surgery: _NONE_ Medications to discontinue per ANESTHESIA VITAMINS/SUPPLEMENTS 3 DAYS PRIOR TO SURGERY, Date to take last dose 10/12/21_ Please no make-up, nail congolese, hairspray, perfume, deodorant, or body powder the day of surgery. No jewelry (including any body piercings) or valuables the day of surgery, leave them at home. Please take a shower or bath the night before, or the morning of, surgery with an antibacterial soap. Wear comfortable, loose fitting clothing. Children are encouraged to wear pajamas. - Jewelry must be removed prior to entering the operating room. Rings and piercings that are not removed may be cut off. - The hospital will not accept responsibility for valuables. - Please leave all valuables, including medications, at home the day of surgery. If you are going home after surgery, a licensed route sales delivery driver must drive you home. - NO public transportation without another adult. - We recommend that an adult stay with you for 24 hours following discharge. - We also recommend that you do not drive, make important decision, drink alcoholic beverages, or take any drugs that were not prescribed by your health care provider for at least 24 hours after your discharge time. Follow any additional instructions given to you from your surgeon. If you or anyone in your household have experienced Covid symptoms in the past week, please notify your surgeon or the nurse liaison at the phone number below for possible testing. Instructions given to ___PT and asked if any additional questions and then verbalized understanding. Patient advised to call surgeon office or pre surgery nurse liaison [phone] if any additional questions.
--- NOTE | 2021-10-15 13:26 | WPDANESEPPF ---
Anes - Initial Pre Proc Eval Procedure: Operation Date: 10/16/21 07:30 Proposed Procedures p Right Custom Total Knee Arthroplasty - Kevin Galloway MD Date/Time: 10/15/21 13:26 Surgeon: Kevin Galloway MD Pre Op Diagnosis: Prim O.A. Right Knee Patient Data Age: 46 Gender: F Height: 1.65 m Weight: 106.5 kg Last Vital Signs Temp 37.3 C 09/17/21 11:47 Pulse 78 09/17/21 11:47 Resp 18 09/17/21 11:47 BP 136/84 09/17/21 11:47 Pulse Ox 95 09/17/21 11:47 O2 Del Method Room Air 09/17/21 11:47 Allergies Allergy/AdvReac Type Severity Reaction Status Date / Time adhesive Allergy Unknown Blister Verified 10/16/21 06:35 Home Medications Medication Instructions Recorded Confirmed Type multivitamin 1 tablet PO DAILY 01/10/21 10/16/21 History mv,iron,gab-UX-ebjeypf supplement 1 tablet PO DAILY 01/10/21 10/16/21 History comb. no.24 400 mcg tablet progesterone micronized 100 mg 100 mg PO HS 01/10/21 10/16/21 History capsule semaglutide (weight loss) 2.4 2.4 mg subcut WEEKLY 01/10/21 10/16/21 History mg/0.75 mL subcutaneous pen injector (Wegovy) phentermine 37.5 mg capsule 18.75 mg PO QAM 02/26/21 10/16/21 History sertraline 100 mg tablet 100 mg PO HS 02/26/21 10/16/21 History spironolactone 100 mg tablet 100 mg PO BID 02/26/21 10/16/21 History Patient hx anesthesia problems: none Family hx anesthesia problems: none Results Review: All pre-operative results and documents have been reviewed as part of the pre-operative evaluation. [facility] Past Medical History Medical History (Updated 10/15/21 @ 13:27 by Kurtis Steel MD) Anxiety Arthritis Essential (primary) hypertension Hypertension Obesity PAOLO (obstructive sleep apnea) Primary localized osteoarthritis of knees, bilateral Sleep apnea in adult Surgical History Surgical History History of section History of total left knee replacement (~04/21/21) Family History Family History Father Family history of malignant melanoma, Onset Age: 53 Other Diabetes mellitus Family history of dementia Family history of lung cancer Social History Social History Smoking status: Never smoker Second hand tobacco smoke exposure: No Additional smoking assessment comments: PT DENIES ALL FORMS OF TOBACCO USE Alcohol intake: current Drinks per week: 2 Substance use: never Substance use type: does not use Living arrangements: with family Additional living arrangements comments: [facility] Spiritual care concerns: No Anes - Eval Final PreProcedure Day of Procedure 10/15/21 13:26 Patient weight: obese Heart: regular rate and rhythm Lungs: clear to auscultation Airway: Mallampati scale class 1 Neurological: alert and oriented Last oral intake: >/= 8 hours ASA classification: III Emergent: no Anesthetic plan: proceed Anesthesia type and monitoring: general LMA and standard monitoring Results Review: All pre-operative results and documents have been reviewed as part of the pre-operative evaluation. Informed Consent: The patient's anesthetic plan and its attendant risks and benefits were discussed with the patient/family/POA. Questions were solicited and answers provided to the satisfaction of the patient/family/POA.
--- NOTE | 2021-10-15 13:28 | WPDANESPNB ---
Anes - Peripheral Nerve Block Date/Time: 10/15/21 13:28 I have discussed with the patient/family/POA the placement of a peripheral nerve block for post-operative pain management, including associated risks, benefits, complications, and side effects. Alternative methods of post-operative analgesia were detailed. Questions were solicited and answers provided to the satisfaction of the patient/family/POA. Time-Out: A pre-procedural Time-Out was completed immediately before starting the procedure and confirmed: Patient Identification, Site, Procedure, Patient Position and the Availability of Requisite Equipment. Clinical Indications: Acute post-operative pain management requested by the operative surgeon. Nerve Block Insertion Note Anes-nerve block: adductor canal Patient position: supine Skin prep: chlorhexidine Needle: 22 gauge, stimulating, insulated echogenic needle. Needle length: 80 mm Technique: ultrasound Technique comment: in plane Injectate: bupivacaine 0.5% with epi 5 mcg/ml (30cc) Observations: tolerated well Complications: none Procedure start time:: 720 Procedure end time:: 725
[2021-10-16] VITALS (14 sets, daily range): BP systolic 117–155; BP diastolic 67–79; PULSE 74–116; RESP 13–22; TEMP 35.6–37.9; O2SAT 95–99
--- NOTE | ~2021-10-16 | XR_ITS ---
EXAMINATION: XR knee RT 2V DATE: 10/16/2021 12:23 INDICATION: Right knee arthroplasty. Postop. TECHNIQUE: 2 views of right knee were obtained. COMPARISON: Right knee radiographs 09/17/2021 FINDINGS: There is a total right knee arthroplasty with patellar resurfacing. Tibia demonstrates 6 de grees medial angulation with respect to tibial component. No fracture. There is gas in the knee joint and soft tissues, consistent with recent surgery. IMPRESSION: 1. New total right knee arthroplasty. Reviewed, dictated and finalized at location A.
[2021-10-16] MEDS: LACTATED RINGERS 1,000 ML 30 ML IV CONT ×2 (07:07→11:32)
[2021-10-16] MEDS: ACETAMINOPHEN 500 MG TABLET 1000 MG PO (07:08)
[2021-10-16] MEDS: TRANEXAMIC ACID 1,000MG/ISO100 1,000 MG/100 ML BAG 200 MG IVPB (07:09)
--- NOTE | 2021-10-16 07:17 | WPDHPUPDATE1 ---
History and Physical Update Update Date/Time: 10/16/21 07:17 Correct side is right. Addendum added to H and P. History and Physical has been reviewed, including an updated exam of the patient. There are NO changes in the patient's condition. Risks, benefits, and alternatives have been discussed and questions answered. Patient agrees to proceed with procedure.
[2021-10-16] MEDS: ceFAZolin 2 GM/D5W 50 ML 2 GM/50 ML BAG IVPB ×3 (07:32→23:41)
[2021-10-16] MEDS: GENTAMICIN BONE CEMENT REFOBACIN 1 EACH TOPICAL (08:16)
[2021-10-16] MEDS: ceFAZolin SODIUM 1 GM VIAL 2 GM IV PUSH (10:59)
--- NOTE | 2021-10-16 12:29 | ADMGEN ---
This patient, Caitlyn Rico, was admitted to Medical Room 251-01. Patient/family oriented to hospital policies and general routines including ID bracelet, bed and alarms, visiting hours, pain management, procedures, bathroom and other care routines, personal items, smoking policy, room service/diet, and visiting hours. Information on how to activate the Rapid Response Team has been discussed. Patient/Family are encouraged to report perceived risks to care and to ask questions if they do not understand what they are told or what they should do.
[2021-10-16] MEDS: oxyCODONE HCL (*CRX) 5 MG TAB IR PO ×2 (12:48→21:07)
[2021-10-16] MEDS: SODIUM CHLORIDE 0.9% IV 1,000 ML 125 ML IV CONT (12:49)
--- NOTE | 2021-10-16 13:59 | PCOTNOTE ---
Attempted to see pt. for occupational therapy evaluation. Pt. finishing PT evaluation and returning to bed due to excessive nausea. Pt. requested to wait for OT evaluation. Will follow. Nursing updated.
[2021-10-16] MEDS: ONDANSETRON INJ 4 MG/2 ML VIAL IV PUSH (14:21)
--- NOTE | 2021-10-16 16:21 | W.PM.PROC2 ---
Procedure Note - Detailed Date of Procedure 10/16/21 Pre-op Diagnosis Prim O.A. Right Knee Post-op Diagnosis Same Procedure Performed Total knee arthroplasty, right. Surgeon Kevin Galloway MD Sales Promotion Representative Abigail Sorenson PA-C Anesthesia General and Regional (Subsartorial block.) Indications Severe contracture and varus deformity. Constitutional varus. Findings Severe contracture required extensive medial release. Bone quality excellent. Tibia placed in slight varus due to the significant constitutional varus. Extensive surgical time due to the complexities of the deformity and contracture. Tibia was cut after the distal femoral resection to create room for the femoral anterior and posterior jig. Description of Procedure Preoperative antibiotics were given. The limb was prepped and draped in the usual sterile fashion with a well-padded tourniquet high on the thigh. The limb was exsanguinated and the tourniquet inflated to 300 mmHg. A longitudinal incision was created just medial to the patella. A trivector approach to the knee was performed. Arthrotomy was taken down through the joint capsule. No significant releases were initially taken. The femur was exposed and the F1 jig was applied. The coring tool was used to remove the cartilage for the F2 jig to sit flush with the bone. The jig was pinned and the distal cut carefully taken. Caliper measurements confirmed appropriate bony resections according to the preoperative templated plan. The tibia was prepared using the T1 jig, after removing cartilage for the jig contact points. Proper alignment was checked with the alignment ligia. The tibia was cut using the T1u guide. Gap balancing was performed. Gap measurements were taken and the knee was trialed. Excellent alignment and soft tissue balancing was confirmed. The posterior cruciate ligament was recessed along the proximal tibia. The patella was cut for resurfacing. Three lug holes were drilled. Meniscal remnants were removed. The F4 cutting jig for the femur was applied, at the standard rotation. The AP and anterior chamfer cuts were taken. The F5 jig was applied and the posterior chamfer cuts were taken. The trial components were assembled. Excellent range of motion and proper soft tissue balancing were confirmed throughout the full range of motion. Patellar tracking was excellent. The knee was copiously irrigated periodically throughout the procedure. The real implants were cemented into position. Excess cement was carefully removed. The wound was closed in layers with interrupted #1 Vicryl suture, 2-0 strata fix suture, 0 strata fix suture, 2-0 strata fix suture. Steri-Strips placed on the skin with the knee flexed. Sterile bulky dressing applied. The patient was brought to the recovery room in stable condition. There were no complications. Physician dental chairside assistant, Abigail Sorenson PA-C, required for surgery; including patient positioning, draping, tissue retraction, maintaining instrument position, cement removal, wound closure, and dressing placement. Implants Conformis Custom total knee arthroplasty. Cemented. PS. 7mm insert. 29 mm round patella. Estimated Blood Loss -250.0 Drains No Complications No immediate complications Condition Stable Disposition PACU [facility] Billing Surgery - Charge Forward: Surgery Billing
[2021-10-16] MEDS: SENNA/DOCUSATE SODIUM TABLET 2 TAB PO (16:44)
[2021-10-16] MEDS: SPIRONOLACTONE 50 MG TABLET 100 MG PO (16:44)
[2021-10-16] MEDS: MELOXICAM 7.5 MG TABLET PO (16:45)
[2021-10-16] MEDS: oxyCODONE HCL (*CRX) 5 MG TAB IR 10 MG PO ×2 (16:45→23:51)
[2021-10-16] MEDS: ASPIRIN 81 MG ENTERIC TABLET PO (16:45)
[2021-10-16] MEDS: FAMOTIDINE 20 MG TABLET PO (21:07)
[2021-10-16] MEDS: SERTRALINE HCL 50 MG TABLET 100 MG PO (21:07)
[2021-10-17 00:13] VITALS: BP 119/57; PULSE 74; RESP 18; TEMP 36.2; O2SAT 99
[2021-10-17 03:05] VITALS: BP 132/64; PULSE 73; RESP 18; TEMP 36.2; O2SAT 97
[2021-10-17] MEDS: oxyCODONE HCL (*CRX) 5 MG TAB IR PO (03:10)
[2021-10-17] MEDS: ceFAZolin 2 GM/D5W 50 ML 2 GM/50 ML BAG IVPB (06:14)
--- NOTE | 2021-10-17 08:33 | WPDANESPN ---
Anes - Prog Note Post-Op Date/Time: 10/17/21 08:33 Cardiovascular status: normal Respiratory status: normal Airway patency: baseline Mental status: baseline Post-Op hydration status: normal Vital Signs: Last Vital Signs Temp 36.2 C L 10/17/21 03:05 Pulse 73 10/17/21 03:05 Resp 18 10/17/21 03:05 BP 132/64 10/17/21 03:05 Pulse Ox 97 10/17/21 03:05 O2 Del Method CPAP 10/16/21 23:35 O2 Flow Rate 10/16/21 11:21 Pain Score (VAS): 03/03 I/O: Intake & Output 10/16/21 10/17/21 10/17/21 23:59 07:59 15:59 Intake Total 1850 740 Output Total 300 Balance 1550 740 Post-procedural complaints: none Patient Feedback: Patient satisfied with anesthetic care.
[2021-10-17] MEDS: predniSONE 5 MG TABLET PO (08:55)
[2021-10-17] MEDS: SENNA/DOCUSATE SODIUM TABLET 2 TAB PO (08:55)
[2021-10-17] MEDS: MELOXICAM 7.5 MG TABLET PO (08:55)
[2021-10-17] MEDS: SPIRONOLACTONE 50 MG TABLET 100 MG PO (08:56)
[2021-10-17] MEDS: ASPIRIN 81 MG ENTERIC TABLET PO (08:56)
[2021-10-17] MEDS: FAMOTIDINE 20 MG TABLET PO (08:56)
[2021-10-17] MEDS: polyethylene glycoL 3350 17 GM POWD.PACK PO (08:56)
[2021-10-17] MEDS: oxyCODONE HCL (*CRX) 5 MG TAB IR 10 MG PO ×2 (08:57→12:55)
[2021-10-17 10:40] VITALS: BP 133/65; PULSE 72; RESP 14; TEMP 36.4; O2SAT 98
[2021-10-17] MEDS: CYCLOBENZAPRINE HCL 10 MG TABLET PO (11:05)
--- NOTE | 2021-10-17 12:25 | PM.DS ---
DS: Admitting Diagnosis Discharge Date 10/17/21 Admitting Diagnosis OA knee Right DS: Discharge Diagnosis Discharge Diagnosis (1) Status post total right knee replacement: Code(s): Z96.651 - Presence of right artificial knee joint Status: Acute Plan Postop day 1: Right total knee arthroplasty. Patient tolerated procedure well. No complications. Pain manageable with pain medication. No numbness or tingling. We had a lengthy discussion regarding postoperative wound care, limitations, expectations, and exercises. Patient shows good understanding. She has had initial physical therapy and is tolerating it well. DVT prophylaxis: 81 mg baby aspirin b.i.d. for 14 days. Pain medication: Percocet. Meloxicam. Prednisone. Patient has followup appointment with Dr. Galloway in 3 weeks. DS: Summary Hospital Course Reason for hospitalization: Total knee arthroplasty Hospital Course: Patient tolerated procedure well. Has had initial PT/OT. No complications. Pain well managed. Status at Discharge Functional status at discharge: uses cane/walker Overall status at discharge: patient is progressing back to baseline Time Spent with Patient Time attestation: Total time spent providing and/or coordinating discharge services: Exam Narrative: Overweight 46 y/o female. Resting comfortably in chair. No acute distress. A&O x3. Wearing compression socks bilaterally. Dressing intact with no drainage. Mild swelling. No ecchymosis. No erythema. No hematoma. Good early range of motion. Calf nontender. Neurologic status intact. No varicosities. Distal pulses palpable. Discharge Plan Discharge Patient Disposition: Home, Self-Care Discharge Instructions: See green instruction sheets Patient Instructions: Precautions after Total Joint Replacement Surgery (DC), Joint Replacement Surgery (DC) Follow-up/Referrals: Abigail Sorenson PA [Physician Wastewater Plant Civil Engineer] - Discharge Medications: New meloxicam 15 mg tablet 15 mg PO DAILY Qty: 30 0RF Rx Instructions: Cut in half. Take 1/2 in morning and 1/2 at night. Take with food. Stop if stomach upset. prednisone 5 mg tablet 5 mg PO DAILY 21 Days Qty: 21 0RF aspirin 81 mg tablet,delayed release (DR/EC) 81 mg PO BID 14 Days Qty: 28 0RF oxycodone-acetaminophen 5-325 mg tablet 1 - 2 tablet PO Q4-6H MDD 6 PRN (Reason: pain) Qty: 30 0RF Continued Wegovy 2.4 mg/0.75 mL pen injector 2.4 mg subcut WEEKLY Rx Instructions: / of a 2.4mg syringe weekly,, ON WEDNESDAYS progesterone micronized 100 mg capsule 100 mg PO HS Rx Instructions: off 7 days during period; repeat multivitamin Tablet 1 tablet PO DAILY mv,iron,wea-GI-eiyzlaw cmb.24 400 mcg tablet 1 tablet PO DAILY spironolactone 100 mg tablet 100 mg PO BID Rx Instructions: TAKES SPIRONLACTONE FOR ACNE phentermine 37.5 mg Capsule 18.75 mg PO QAM sertraline 100 mg tablet 100 mg PO HS
[2021-10-17 14:05] VITALS: BP 156/81; PULSE 75; RESP 14; TEMP 37.1; O2SAT 99
== END 2021-10-17 15:30 | disposition home or self-care (01) ==
LOC: ANHSURGERY 06:27 → ANH2MED 12:23
PROVIDERS: Visit Provider Orthopaedic Surgery
PROC: (CPT 27447; principal; 2021-10-16 07:30)
DX: M17.11 Unilateral primary osteoarthritis, right knee (principal); M25.561 Pain in right knee; F41.8 Other specified anxiety disorders; M19.90 Unspecified osteoarthritis, unspecified site; I10 Essential (primary) hypertension; G47.33 Obstructive sleep apnea (adult) (pediatric); G89.18 Other acute postprocedural pain
CPT/HCPCS: 27447; 64447; 36415; 73560; 80048; 80307; 82040; 85025; 86850; 86900; 86901; 87081; 97110; 97116; 97161; 97165; 97530; 97535; A9270; C1713; C1776; J0131; J0171; J0360; J0690; J1100; J1170; J1885; J2250; J2270; J2405; J2704; J2710; J2765; J2795; J3010; J7030; J7120; J7512